=== PATIENT | female | born 1995 | race Caucasian/White ===

== ENCOUNTER 2016-11-23 13:54 | Emergency (ER) | payer OTHER ==
--- OUTSIDE RECORDS SUMMARY | 2016-11-23 14:40 | XMS REPORT | Continuity of Care Document ---
:1995 Author Organization [facility] ([facility]) Address [address] [place] [address] Phone [phone] Care Team Providers Name Role Phone Unavailable Primary Care Provider Unavailable Source Comments This disclosure is being made pursuant to the Care Everywhere program, applicable federal and state laws, and may not contain all informaitonavailable regarding this patient.[facility] ([facility]) Active Allergies and Adverse Reactions No Known Allergies Current Medications Prescription Sig. Disp. Refills Start Date End Date Status insulin lispro Inject subcutaneously 3 Active (HumaLOG) 100 unit/mL times daily before injection vial meals insulin glargine Inject subcutaneously Active (LanTUS) 100 unit/mL at bedtime injection vial SUPPLY FREESTYLE LITE daily Used to test Active test strips blood glucose levels 20 times per day Active Problems Problem Noted Date Diabetes mellitus type 1, uncontrolled 06/26/2015 Resolved Problems Problem Noted Date Resolved Date PPROM at 33 6/7 weeks, BMTZ 1/4 and 1/5 08/24/2011 08/25/2011 Mild preeclampsia, 24 hr urine 459 mg 08/24/2011 06/26/2015 Gestational diabetes A2 on glyburide 2.5 q pm 08/24/2011 06/26/2015 macrosomia, measuring 3424 gm at 33 3/7 weeks (>97%) 08/24/20112014 , , dating by LMP c/w 21 wk US 08/24/2011 06/26/2015 Social History Tobacco Use Types Packs/Day Years Used Date Never Smoker Smokeless Tobacco: Never Used Tobacco Cessation:Counseling Given: Yes Comments: Alcohol Use Drinks/Week oz/Week Comments No Last Filed Vital Signs Vital Sign Reading Time Taken Blood Pressure 109/75 06/26/2015 9:30 AM BILL HIKER Pulse 94 06/26/2015 9:30 AM BILL HIKER Temperature 36.5 C (97.7 F) 08/27/2011 7:45 AM BILL HIKER Respiratory Rate 18 08/25/2011 6:51 AM BILL HIKER Height 1.651 m (5' 5") 06/26/2015 9:30 AM BILL HIKER Weight 82.6 kg (182 lb 1.6 oz) 06/26/2015 9:30 AM BILL HIKER Body Mass Index 30.3 06/26/2015 9:30 AM BILL HIKER Oxygen Saturation - - Plan of Care Health Maintenance Due Date Last Done Comments Hepatitis B Vaccine (1 of 3 - Primary Series) 1994 HPV Vaccine (1 of 3 - Female/Unknown 3 Dose Series) 2005 Tdap Vaccine 2005 Meningococcal Vaccine (1 of 1) 2010 Cervical Cancer Screening 2012 DIABETIC: Cholesterol 2012 Diabetic: Hdl 2012 DIABETIC: Hemoglobin A1C 2012 Diabetic: Ldl 2012 DIABETIC: Microalbumin 2012 DIABETIC: Triglycerides 2012 MMR Vaccine 2012 Td Vaccine 2012 Varicella Vaccine (1 of 2 - Adult - No Evidence of 2012 Immunity) Pneumococcal Vaccine (1 of 1 - PPSV23) 2013 DIABETIC: Foot Exam 06/26/2015 DIABETIC: Retinal Eye Exam 06/26/2015 Influenza Vaccine: Seasonal (#1) 03/03/2016 Results from Last 3 Months Not on file
[2016-11-23] MEDS ORDERED: NORMAL SALINE 1,000 ML IV ONE ×2 (14:44→16:24)
[2016-11-23] MEDS ORDERED: ONDANSETRON HCL/PF 2 MG/ML VIAL IV ONE (14:45)
--- NOTE | 2016-11-23 14:57 | ERNOTE ---
Integumentary HPI - Narrative Date of Service: 11/23/16 - General Presenting Symptoms: abscess Time Seen by Provider: 11/23/16 14:30 Source: patient Exam Limitations: no limitations - Immun/Allergies/Home Medications Immunizations: IMMUNIZATION HX Immunizations Up to Date No History of Influenza Vaccine No Hx Pneumococcal Vaccination No Allergies/Adverse Reactions: Allergies Allergy/AdvReac Type Severity Reaction Status Date / Time No Known Allergies Allergy Verified 03/20/16 15:08 Home Medications: HOME MEDICATIONS Insulin Lispro [Humalog] 10 units SC TIDWM 08/07/15 [Last Taken 08/07/15] Atorvastatin Calcium [Lipitor] 40 mg PO HS 11/23/16 [Last Taken Unknown] Doxycycline Hyclate [Vibratab] 100 mg PO BID #28 tablet 11/23/16 [Last Taken Unknown] HYDROcodone/ACETAMINOPHEN [[place] 5-325 Tablet] 1 each PO Q6H PRN #10 tablet [Last Taken Unknown] HYDROcodone/ACETAMINOPHEN [[place] 5-325 Tablet] 1 tab PO Q6H PRN #10 tab [Last Taken Unknown] Insulin Glargine,Hum.rec.anlog [Lantus] 40 units SC BID 11/23/16 [Last Taken Unknown] - Pain Pain Score: 9 - History of Present Illness Narrative: Patient is a 21 year old insulin dependant diabetic who is currently being treated with Bactrim for MRSA. Patient states she has history of MRSA and was seen at [facility] approximately 2 weeks ago for MRSA abscesses on her forehead and right labia. States was told abscesses were not ready to be lanced and was started on Clindamycin. Patient states she returned to [facility] approximately 4- 5 days later and labia sore was lanced and left open to drain. States 4-5 days ago she was called with her culture results and Clindamycin was discontinued and Bactrim DS was started. Patient states she was doing fine until 3 days ago when she felt a sore bump on back of her head. States bump is getting larger, more painful and now has fever, chills, body aches, fatigue, headache and nausea. Patient states her blood sugars have been consistently >400 and she is feeling worse. Has history of DKA. Has been IDDM x 2 years and uses Humalog sliding scale and Lantus 40 units SQ BID to keep sugars ~130. States she is compliant with insulin and keeps tight control over her blood sugars. Date (Duration): 11/20/16 Location: Reports: scalp Quality: Reports: painful Severity: moderate Exposure: Reports: other - history of MRSA, currently under treatment with Bactrim for MRSA Modifying Factors - (Improves): Reports: nothing Modifying Factors - (Worsens): Reports: nothing Associated Symptoms: Reports: swelling/mass/lumps, fever, flushing, headache, malaise. Denies: blisters, rash, hives, petechiae, edema, nasal congestion, sore throat, pallor, paresthesia, numbness, jaundice Prior Treatment: Reports: recently seen, treated by physician, currently on antibiotics - Clindamycin initially and changed to Bactrim DS BID Review of Systems - Review of Systems Constitutional: Present: recent illness, fever, chills, diaphoresis, fatigue, malaise. Absent: weight loss, fussy, decreased activity level EYE: Absent: eye pain, eye discharge, blurred vision, double vision, vision changes ENT: Absent: ear pain, ear discharge, pulling on ears, nose pain, nose congestion, nasal drainage, sore throat Respiratory: Absent: shortness of breath, cough, orthopnea, wheezing, stridor Cardiology: Absent: chest pain, palpitations, syncope Gastrointestinal/Abdominal: Present: nausea, eating less, drinking less. Absent : vomiting, diarrhea, constipation, abdominal pain Genitourinary: Present: no symptoms reported Musculoskeletal: Absent: back pain, muscle pain, muscle stiffness, neck pain, joint pain, joint swelling Skin: Present: lesions - back of scalp. Absent: rash, dryness Neurological: Present: headache. Absent: dizziness/light-headedness, seizure, weakness, numbness, tingling Endocrine: Present: flushing. Absent: excessive sweating, increased hunger, unexplained weight gain Hematologic/Lymphatic: Present: no symptoms reported Psych: Present: no symptoms reported - Patient's Past Medical History Patient History - Medical: Bipolar, Diabetes Type 1 Patient History - Cardiac/Respiratory: No pertinent hx Patient History - Cancer: No Hx of Cancer Patient History - Surgical Procedures: T & A, Other Patient History - Other: None - Family History Mother Family History - Medical: Bipolar Father Family History - Medical: Bipolar - Social History Living Situations: home Abuse History: No History of abuse Psych History: Hx of Bipolar Disorder Smoking Status: Never smoker Alcohol Use: none Drug Use: none - Immunizations Immunizations Up to Date: No Hx Pneumococcal Vaccination: No History of Influenza Vaccine: No Physical Exam - Physical Exam General Appearance: Present: wd/wn, alert, no apparent distress Eye Exam: Normal inspection: bilateral, PERRL: bilateral Ears, Nose, Throat: Present: normal ENT inspection, dry mucous membranes. Absent: pharyngeal erythema, pharyngeal swelling, tonsillar exudate, tonsillar swelling Neck: Present: normal inspection, nontender, supple, full range of motion. Absent: lymphadenopathy (R), lymphadenopathy (L) Respiratory: Present: no respiratory distress, normal breath sounds, no accessory muscle use, chest nontender, lungs clear Cardiovascular/Chest: Present: regular rate, rhythm, no murmur, normal peripheral pulses Peripheral Pulses: N=norm/S=strong/W=weak/B=bound/A=absent: Radial (R): Normal, Radial (L): Normal Gastrointestinal/Abdominal: Present: normal bowel sounds, nontender, nondistended, soft, no organomegaly Rectal Exam: Present: deferred Back Exam: Present: normal inspection, normal range of motion, no CVA tenderness , no vertebral tenderness Extremity Exam: Present: normal inspection, non-tender, normal range of motion, no edema Neurological Exam: Present: alert, oriented, normal mood/affect, no motor/ sensory deficits Skin Exam: Present: normal color, warm/dry - flushed cheeks, other - raised bump with yellow head back of scalp Lymphatic Exam: Present: no adenopathy Pelvic Exam: Present: deferred ED Progress - Results and Orders Patient's Lab Results:: I have reviewed the patient's lab results. - Vital Signs Patient's Vital Signs:: I have reviewed the patient's vital signs. Vital Signs: Vital Signs 11/23/16 14:01 Temperature 36.3 C L Pulse Rate 135 H Respiratory 13 Rate Blood Pressure 128/84 O2 Sat by Pulse 100 Oximetry - Progress/Reassessment Chief Complaint: Rash Progress:: Improved Progress Note-Subjective: 11/23/16 16:25 Patient continues to complain of nausea and pain without relief from Toradol and Zofran. Discussed lab findings with patient. Questions answered. 11/23/16 17:11 Much improved, states headache pain is gone. Eating [employer] and chips without NV. Departure Clinical Impression: MRSA (methicillin resistant Staphylococcus aureus) infection, Abscess - Departure Disposition: Home Follow Up Needed Condition: Good Instructions: Community-Associated MRSA Additional Instructions: Continue Bactrim as previously prescribed. Take Doxycycline twice a day for 2 weeks, complete entire course even when abscess is healed and gone. Monitor blood sugars frequently. Call provider's office on Thursday and follow up this week. Return to ED if symptoms worsen. No driving or drinking alcohol while on [place]. Referrals: Shahida Schmid DO [Primary Care Provider] - Prescriptions: Doxycycline Hyclate [Vibratab] 100 mg PO BID #28 tablet HYDROcodone/ACETAMINOPHEN [[place] 5-325 Tablet] 1 each PO Q6H PRN #10 tablet PRN Reason: Pain HYDROcodone/ACETAMINOPHEN [[place] 5-325 Tablet] 1 tab PO Q6H PRN #10 tab PRN Reason: Pain
[2016-11-23] MEDS ORDERED: ONDANSETRON HCL/PF 2 MG/ML VIAL ONE (14:59)
[2016-11-23 15:07] LABS: Hematocrit 40.9 % (37.0-47.0); Hemoglobin 14.5 gm/dL (12.5-16.0); Mean Corpuscular Hemoglobin 29.8 pg (27-31); Mean Corpuscular Hgb Conc 35.5 g/dl (32-36); Mean Platelet Volume 11.1 fl (6.0-9.5); Neutrophil # 5.9 K/mm3 (1.3-6.0); Neutrophil % 65.6 % (42-75.0); Platelet Count 238 K/mm3 (150-450); Red Blood Count 4.87 M/mm3 (4.2-5.4); Red Cell Distribution Width 11.6 % (11.5-14.0); White Blood Count 9.1 K/mm3 (4.0-10.5)
[2016-11-23 15:08] LABS: Urine Appearance Clear; Urine Color Yellow
[2016-11-23 15:09] LABS: Urine Bacteria None Seen; Urine Bilirubin Negative (NEGATIVE); Urine Blood Negative /ul (NEGATIVE); Urine Ketone Negative (NEGATIVE); Urine Nitrite Negative (NEGATIVE); Urine Protein Negative (NEGATIVE); Urine RBC None Seen /hpf (0-5); Urine Specific Gravity 1.015 SP.GR. (1.005-1.010); Urine Urobilinogen Normal (NORMAL); Urine WBC 0-5 /hpf (0-5)
[2016-11-23] MEDS ORDERED: KETOROLAC TROMETHAMINE 30 MG/ML VIAL ONE (15:13)
[2016-11-23 15:14] LABS: BUN/Creatinine Ratio 13.7 (9.0-21.6); Calcium * 8.7 mg/dL (7.9-10.9); Estimated Creat Clear 108.8; Potassium 3.9 mmol/L (3.4-4.6)
[2016-11-23] MEDS ORDERED: KETOROLAC TROMETHAMINE 30 MG/ML VIAL IV ONE (15:14)
[2016-11-23 15:26] LABS: Anion Gap 13.6 mmol/L (6.8-13.8); Carbon Dioxide 29.3 mmol/L (24-32.6)
[2016-11-23] MEDS ORDERED: MORPHINE SULFATE 2 MG/ML DISP.SYRIN IV ONE (16:24)
[2016-11-23] MEDS ORDERED: PROCHLORPERAZINE EDISYLATE 5 MG/ML VIAL IV ONE (16:25)
[2016-11-23] MEDS ORDERED: MORPHINE SULFATE 2 MG/ML DISP.SYRIN ONE (16:26)
[2016-11-23] MEDS ORDERED: PROCHLORPERAZINE EDISYLATE 5 MG/ML VIAL ONE (16:27)
[2016-11-23] MEDS ORDERED: DOXYCYCLINE HYCLATE 100 MG TABLET PO ONE (17:17)
[2016-11-23] MEDS ORDERED: DOXYCYCLINE HYCLATE 100 MG TABLET ONE (17:20)
[2016-11-23 17:25] VITALS: BP 113/76
== END 2016-11-23 17:34 | disposition home or self-care (01) ==
LOC: ER 13:54
DX: A49.02 Methicillin resistant Staphylococcus aureus infection, unspecified site (principal); L02.811 Cutaneous abscess of head [any part, except face]; E10.69 Type 1 diabetes mellitus with other specified complication

== ENCOUNTER 2017-03-09 13:22 | Observation (INO) | payer OTHER ==
[2017-03-09 14:19] LABS: Hematocrit 37.4 % (37.0-47.0); Hemoglobin 12.7 gm/dL (12.5-16.0); Mean Cell Volume 88.4 fl (78-100); Neutrophil # 1.8 K/mm3 (1.3-6.0); Neutrophil % 45.6 % (42-75.0); Platelet Count 164 K/mm3 (150-450); Red Blood Count 4.23 M/mm3 (4.2-5.4); Red Cell Distribution Width 14.1 % (11.5-14.0)
[2017-03-09 14:22] LABS: Urine Bilirubin Negative (NEGATIVE); Urine Blood Negative /ul (NEGATIVE); Urine Ketone Negative (NEGATIVE); Urine Nitrite Negative (NEGATIVE); Urine Protein Negative (NEGATIVE); Urine Urobilinogen Normal (NORMAL); Urine pH 6.5 pH (5.0-7.0)
[2017-03-09 14:32] LABS: Albumin * 2.8 gm/dl (3.4-5.0); Anion Gap 17.6 mmol/L (6.8-13.8); BUN/Creatinine Ratio 15.5 (9.0-21.6); Bilirubin, Total 0.4 mg/dL (0.0-1.1); Ca. Corrected For Albumin 9.2 mg/dL (8.4-10.2); Calcium * 8.6 mg/dL (7.9-10.9); Carbon Dioxide 25.6 mmol/L (24-32.6); Potassium 4.2 mmol/L (3.4-4.6); Total Protein 6.1 gm/dL (6.2-8.2)
[2017-03-09 14:36] LABS: Hemoglobin A1C 12.1 % (4.00-6.0)
[2017-03-09] MEDS ORDERED: NORMAL SALINE 1,000 ML IV ONE (14:41)
[2017-03-09 14:46] LABS: Urine Amorphous Sediment Moderate - 2+ (NONE-FEW); Urine Appearance Clear; Urine Bacteria None Seen; Urine Color Yellow; Urine RBC None Seen /hpf (0-5); Urine WBC None Seen /hpf (0-5)
--- NOTE | 2017-03-09 14:47 | ERNOTE ---
Medical Problem HPI - General Chief Complaint: General Assessment Time Seen by Provider: 03/09/17 13:53 Source: patient Exam Limitations: no limitations - Immun/Allergies/Home Medications Immunizations: IMMUNIZATION HX Immunizations Up to Date No History of Influenza Vaccine No Hx Pneumococcal Vaccination No Allergies/Adverse Reactions: Allergies No Known Allergies Allergy (Verified 03/20/16 15:08) Home Medications: HOME MEDICATIONS Insulin Lispro [Humalog] 10 units SC TIDWM 08/07/15 [Last Taken 08/07/15] Atorvastatin Calcium [Lipitor] 40 mg PO HS 11/23/16 [Last Taken Unknown] Insulin Glargine,Hum.rec.anlog [Lantus] 40 units SC BID 11/23/16 [Last Taken Unknown] Omeprazole 20 mg PO DAILY 03/09/17 [Last Taken Unknown] - History of Present History Narrative: This is a 21-year-old female with a history of insulin requiring diabetes who presents to the ER for swelling in both hands and feet. Patient states that she has not been indulging in sodium rich foods and she states "I think I may be in DKA" she also complains about some diffuse abdominal discomfort but no pain per se no nausea or vomiting. Review of Systems - Review of Systems Constitutional: Present: no symptoms reported EYE: Present: no symptoms reported ENT: Present: no symptoms reported Respiratory: Present: no symptoms reported Cardiology: Present: no symptoms reported Gastrointestinal/Abdominal: Present: See HPI. Absent: nausea, vomiting Genitourinary: Present: no symptoms reported Musculoskeletal: Present: other - patient complains of swelling and both hands and feet in the past 24 hours. Neurological: Present: emotional problems - Patient's Past Medical History Patient History - Medical: Bipolar, Diabetes Type 1, GERD Patient History - Cardiac/Respiratory: Hyperlipidemia Patient History - Cancer: No Hx of Cancer Patient History - Surgical Procedures: T & A, Other Patient History - Other: None - Family History Mother Family History - Medical: Bipolar Father Family History - Medical: Bipolar - Social History Living Situations: home Abuse History: No History of abuse Psych History: Hx of Bipolar Disorder Smoking Status: Never smoker Have you smoked in the past 12 months: No Alcohol Use: none Drug Use: none - Immunizations Immunizations Up to Date: No Hx Pneumococcal Vaccination: No History of Influenza Vaccine: No Physical Exam - Physical Exam General Appearance: Present: wd/wn, alert, no apparent distress Head Exam: Present: normal inspection, no evidence of injury Ears, Nose, Throat: Present: normal ENT inspection, normal pharynx Neck: Present: normal inspection, nontender Respiratory: Present: no respiratory distress, normal breath sounds, no accessory muscle use, chest nontender, lungs clear Cardiovascular/Chest: Present: regular rate, rhythm, no murmur, normal peripheral pulses Gastrointestinal/Abdominal: Present: normal bowel sounds, nondistended Extremity Exam: Present: normal range of motion, other - patient does have 1+ pitting edema in both ankles and lower tibial regions I do not appreciate any swelling in the hands. There is no other signs of trauma to extremities Neurological Exam: Present: alert, oriented, normal mood/affect, no motor/ sensory deficits ED Progress - Results and Orders Patient's Lab Results:: I have reviewed the patient's lab results. - Vital Signs Patient's Vital Signs:: I have reviewed the patient's vital signs. Vital Signs: Vital Signs 03/09/17 13:40 Temperature 36.8 C Pulse Rate 92 Respiratory 17 Rate Blood Pressure 120/79 O2 Sat by Pulse 98 Oximetry - X-Ray X-Ray #1 X-Ray: chest - Progress/Reassessment Chief Complaint: General Assessment Plan - Plan Plan: This is a 21-year-old female who initially presented to us with swelling in hands and feet. While the swelling in the legs and ankles is minimal during the workup it was noted the patient has lactic acidosis with hyperglycemia and very poorly controlled diabetes with a hemoglobin A1c of 12.1 serum ketones are negative urine ketones are negative. As such I believe this patient has hyperglycemia with lactic acidosis and patient needs to be admitted for further observation and monitoring and IV fluid therapy. He also needs insulin and 4 units IV was instituted at this time Departure - Departure Clinical Impression: Hyperglycemia, Lactic acidosis Clinical Impression: (Ruled Out): Sepsis Disposition: [facility] Condition: Fair
[2017-03-09] MEDS ORDERED: INSULIN REGULAR, HUMAN 100 UNITS/ML VIAL IV ONE (15:11)
[2017-03-09] MEDS ORDERED: INSULIN REGULAR, HUMAN 100 UNITS/ML VIAL ONE (15:15)
[2017-03-09] MEDS ORDERED: INSULIN REGULAR, HUMAN 100 UNITS/ML VIAL SC SCH (15:30)
--- NOTE | 2017-03-09 17:15 | HP ---
Chief Complaint - Chief Complaint Date of Service: 03/09/17 Time of Service: 17:09 Chief Complaint: Swelling of hands and feet which is typical of when she goes into DKA. She was hyperglycemic with lactic acidosis in ER so needed fluids, insulin and observation for this. History of Present Illness: 21 WF with PMH type 1 DM, history of recurrent MRSA infections, was having hand and LE swelling, which often happens as she starts going into DKA, so she went to ER. She had no signs of current infections/skin abscesses, fevers, chills, UTI sx, but was having some SOB. Sugars for her she said really have been pretty good lately. In seeing her the only issue she really has is her stomach right now and the edema, otherwise she says she feels fine. In ER she was hyperglycemic with lactic acidosis in ER so needed fluids, insulin and observation for this. - Patient's Past Medical History Patient History - Medical: Bipolar, Diabetes Type 1, GERD Patient History - Cardiac/Respiratory: Hyperlipidemia Patient History - Cancer: No Hx of Cancer Patient History - Surgical Procedures: T & A, Other Patient History - Other: None LMP (females 10-50): this week - Family History Mother Family History - Medical: No pertinent hx, Bipolar Father Family History - Medical: No pertinent hx, Bipolar - Social History Living Situations: alone Abuse History: No History of abuse Psych History: Hx of Bipolar Disorder Smoking Status: Never smoker Have you smoked in the past 12 months: No Alcohol Use: none Drug Use: none - Immunizations Immunizations Up to Date: No Hx Pneumococcal Vaccination: No History of Influenza Vaccine: No Review Of Systems (GEN) - Review of Systems Generalized/Overall Review: Present: No Symptoms Reported EENTM: Present: No Symptoms Reported Respiratory: Present: Shortness of Breath Cardiac: Present: Edema. Absent: Chest Pain, Palpitations Abdominal: Present: Nausea, Abdominal Pain - TANJA and heartburn sx. Genitourinary: Present: No Symptoms Reported Musculoskeletal: Present: No Symptoms Reported Neurological: Present: Tingling Skin: Present: No Symptoms Reported Endocrine: Present: No Symptoms Reported Immunizations: IMMUNIZATION HX Immunizations Up to Date No History of Influenza Vaccine No Hx Pneumococcal Vaccination No Allergies/Adverse Reactions: Allergies Allergy/AdvReac Type Severity Reaction Status Date / Time No Known Allergies Allergy Verified 03/20/16 15:08 Home Medications: HOME MEDICATIONS Insulin Lispro [Humalog] 10 units SC TIDWM 08/07/15 [Last Taken 08/07/15] Atorvastatin Calcium [Lipitor] 40 mg PO HS 11/23/16 [Last Taken Unknown] Insulin Glargine,Hum.rec.anlog [Lantus] 40 units SC BID 11/23/16 [Last Taken Unknown] Omeprazole 20 mg PO DAILY 03/09/17 [Last Taken Unknown] Exam - Exam Vital Signs: Vital Signs - Last Taken Temp 36.7 C 03/09/17 15:55 Pulse 82 03/09/17 15:55 Resp 16 03/09/17 15:55 BP 120/75 03/09/17 15:55 Pulse Ox 98 03/09/17 15:55 Constitutional: Present: Alert, Oriented x3, Cooperative, Well developed, No distress ENT Exam: Present: hearing grossly normal Eye Exam: bilateral eye: normal inspection, PERRL, EOMI Neck: Present: supple Respiratory: Present: chest non-tender, lungs clear, normal breath sounds, no respiratory distress Cardiovascular/Chest: Present: regular rate, rhythm, no murmur Peripheral Pulses: dorsalis-pedis (R): 2+ - 1+ LE edema, dorsalis-pedis (L): 2+ - 1+ LE edema Abdomen: Present: Normal bowel sounds, soft, nondistended, no rebound tenderness , tender - TANJA region /Rectal: Present: Exam deferred Extremity: Present: no calf tenderness, lower extremity edema - 1+ bernarda Skin Exam: Present: normal color, warm/dry Neurologic: Present: financial services consultant II-XII nml as tested, normal mood/affect, oriented x 3 Appearance: Present: appropriate appearance, appropriate insight, neat Eye contact: Present: cooperative, good eye contact, normal speech Thoughts: Present: normal thought pattern, no apparent hallucination Diagnostic Studies: Laboratory Results WBC 4.0 K/mm3 (4.0-10.5) 03/09/17 14:17 RBC 4.23 M/mm3 (4.2-5.4) 03/09/17 14:17 Hgb 12.7 gm/dL (12.5-16.0) 03/09/17 14:17 Hct 37.4 % (37.0-47.0) 03/09/17 14:17 MCV 88.4 fl (78-100) 03/09/17 14:17 MCH 30.0 pg (27-31) 03/09/17 14:17 MCHC 34.0 g/dl (32-36) 03/09/17 14:17 RDW 14.1 % (11.5-14.0) H 03/09/17 14:17 Plt Count 164 K/mm3 (150-450) 03/09/17 14:17 MPV 11.0 fl (6.0-9.5) H 03/09/17 14:17 Immature Gran % (Auto) 1.00 % (0.001-0.429) H 03/09/17 14:17 Immature Gran # (Auto) 0.04 K/mm3 (0.000-0.0310) H 03/09/17 14:17 Neutrophils % 45.6 % (42-75.0) 03/09/17 14:17 Lymphocytes % 32.6 % (20-51) 03/09/17 14:17 Monocytes % 15.4 % (0.0-9) H 03/09/17 14:17 Eosinophils % 4.7 % (0.0-3.0) H 03/09/17 14:17 Basophils % 0.7 % (0.0-1.0) 03/09/17 14:17 Nucleated RBC % 0.0 k/mm3 (0-1) 03/09/17 14:17 Neutrophils # 1.8 K/mm3 (1.3-6.0) 03/09/17 14:17 Lymphocytes # 1.3 k/mm3 (1.5-3.5) L 03/09/17 14:17 Monocytes # 0.6 k/mm3 (0.0-1.0) 03/09/17 14:17 Eosinophils # 0.2 k/mm3 (0.0-0.7) 03/09/17 14:17 Absolute Basophils 0.0 k/mm3 (0.0-0.1) 03/09/17 14:17 pCO2 34.7 mmHg (32.0-45.0) 03/09/17 14:37 pO2 107.3 mmHg (83.0-108.0) 03/09/17 14:37 HCO3 23.0 mmol/L (21.0-28.0) 03/09/17 14:37 Total CO2 24.1 mmol/L (19.0-24.0) H 03/09/17 14:37 Base Excess -0.6 mmol/L (-2.0-3.0) 03/09/17 14:37 ABG pH 7.44 (7.35-7.45) 03/09/17 14:37 ABG O2 Sat (Measured) 98.1 % (94.0-98.0) H 03/09/17 14:37 Sodium 141 mmol/L (132-142) 03/09/17 14:17 Plasma Sodium 145 mmol/L (130-142) H 03/09/17 14:17 Potassium 4.2 mmol/L (3.4-4.6) 03/09/17 14:17 Chloride 102 mmol/L (97-106) 03/09/17 14:17 Carbon Dioxide 25.6 mmol/L (24-32.6) 03/09/17 14:17 Anion Gap 17.6 mmol/L (6.8-13.8) H 03/09/17 14:17 BUN 11 mg/dL (3-23) 03/09/17 14:17 Creatinine 0.71 mg/dL (0.4-1.4) 03/09/17 14:17 Est GFR (Non-Af Amer) 109 mL/min (60-130) 03/09/17 14:17 BUN/Creatinine Ratio 15.5 (9.0-21.6) 03/09/17 14:17 Random Glucose 347 mg/dL (70-110) H 03/09/17 14:17 Mean Blood Glucose 317 mg/dL 03/09/17 14:17 Hemoglobin A1c 12.1 % (4.00-6.0) H 03/09/17 14:17 Lactic Acid, Venous 3.3 mmol/L (0.4-1.9) H* 03/09/17 14:17 Calcium 8.6 mg/dL (7.9-10.9) 03/09/17 14:17 Calcium Adj for Albumin 9.2 mg/dL (8.4-10.2) 03/09/17 14:17 Total Bilirubin 0.4 mg/dL (0.0-1.1) 03/09/17 14:17 AST 251 U/L (0-48) H 03/09/17 14:17 ALT 175 U/L (19-67) H 03/09/17 14:17 Alkaline Phosphatase 111 U/L (50-170) 03/09/17 14:17 Total Protein 6.1 gm/dL (6.2-8.2) L 03/09/17 14:17 Albumin 2.8 gm/dl (3.4-5.0) L 03/09/17 14:17 Serum HCG, Qual Negative (NEGATIVE) 03/09/17 14:12 Urine Color Yellow 03/09/17 14:17 Urine Appearance Clear 03/09/17 14:17 Urine pH 6.5 pH (5.0-7.0) 03/09/17 14:17 Ur Specific [place] 1.010 SP.GR. (1.005-1.010) 03/09/17 14:17 Urine Protein Negative mg/dL (NEGATIVE) 03/09/17 14:17 Urine Glucose (UA) >=1000 mg/dL (NEGATIVE) H 03/09/17 14:17 Urine Ketones Negative mg/dL (NEGATIVE) 03/09/17 14:17 Urine Blood Negative /ul (NEGATIVE) 03/09/17 14:17 Urine Nitrate Negative (NEGATIVE) 03/09/17 14:17 Urine Bilirubin Negative mg/dl (NEGATIVE) 03/09/17 14:17 Urine Urobilinogen Normal EU/dl (NORMAL) 03/09/17 14:17 Ur Leukocyte Esterase Negative /ul (NEGATIVE) 03/09/17 14:17 Urine RBC None seen /hpf (0-5) 03/09/17 14:17 Urine WBC None seen /hpf (0-5) 03/09/17 14:17 Ur Epithelial Cells 0-5 /hpf (0-5) 03/09/17 14:17 Amorphous Sediment Moderate - 2+ (NONE-FEW) H 03/09/17 14:17 Urine Bacteria None seen (NONE) 03/09/17 14:17 Urine Culture Comments No culture indicated 03/09/17 14:17 Serum Ketones Negative (NEGATIVE) 03/09/17 14:12 Assessment/Plan - Assessment/Plan (1) Epigastric abdominal pain Assessment: will do zantac and consider continuing this outpt. Problem: Acute (2) History of MRSA infection Assessment: will check, if + will treat nares outpt. Problem: Acute (3) Hyperglycemia Assessment: will do serial accuchecks q2hrs x 2 with moderate dose SSI. and then change to ACHS dosing. do consistant carb diet and continue her lantus. Problem: Acute (4) Lactic acidosis Assessment: will do high rate IVF and recheck lactic acid in a few hours. if edema worsens will have nursing given prn lasix 20mg IV. Problem: Acute (5) Elevated liver enzymes Assessment: pt. crestor was held due to this. could be [place] causing this as both her liver and spleen area are tender on exam. will follow-up LFT's outpt. but this could easily explain her edema and sx. Problem: Acute (6) Discharge planning issues Assessment: anticipate d/c in am. Problem: Acute
[2017-03-09] MEDS ORDERED: FUROSEMIDE 10 MG/ML VIAL IV PRN (17:38)
[2017-03-09] MEDS: INSULIN REGULAR, HUMAN 100 UNITS/ML VIAL SC SCH ×2 (17:40→20:51)
[2017-03-09] MEDS: NORMAL SALINE 1,000 ML IV PRN ×2 (17:47→22:52)
[2017-03-09] MEDS ORDERED: INSULIN GLARGINE,HUM.REC.ANLOG 100 UNITS/ML VIAL SC SCH (21:00)
[2017-03-09] MEDS ORDERED: ROSUVASTATIN CALCIUM 20 MG TABLET PO SCH (21:00)
[2017-03-09] MEDS ORDERED: RANITIDINE HCL 15 MG/ML BTL PO SCH (21:00)
--- NOTE | 2017-03-10 06:10 | DS ---
(1) Epigastric abdominal pain Problem: Acute (2) History of MRSA infection Problem: Acute (3) Hyperglycemia Problem: Acute (4) Lactic acidosis Problem: Acute (5) Elevated liver enzymes Problem: Acute (6) Discharge planning issues Problem: Acute Description of Stay: Pt. admitted for lactic acidosis, hyperglycemia, edema and was noted to have Upper abdominal pain and elevated LFTs. Fluids were given, crestor was held and we'll do monospot and hepatitis panel prior to her discharge. She can f/u with her PCP to look at restarting crestor if LFT'S normalize. She had no complaints on the morning of discharge. Procedures Performed: none Discharge Disposition: Home self care Disposition: Home self-care Condition: Fair Discharge Activity: Activity as tolerated Discharge Diet: Consistent carbs Referrals: Shahida Schmid DO [Primary Care Provider] - One Week Complete Home Medications List: Complete Home Medication List: Insulin Lispro [Humalog] 10 units SC TIDWM 08/07/15 Insulin Glargine,Hum.rec.anlog [Lantus] 40 units SC BID 11/23/16 Omeprazole 20 mg PO DAILY 03/09/17
[2017-03-10 06:32] LABS: Albumin * 2.3 gm/dl (3.4-5.0); Anion Gap 12.1 mmol/L (6.8-13.8); BUN/Creatinine Ratio 14.6 (9.0-21.6); Bilirubin, Total 0.4 mg/dL (0.0-1.1); Ca. Corrected For Albumin 8.8 mg/dL (8.4-10.2); Calcium * 7.8 mg/dL (7.9-10.9); Carbon Dioxide 27.5 mmol/L (24-32.6); Potassium 3.6 mmol/L (3.4-4.6); Total Protein 5.3 gm/dL (6.2-8.2)
[2017-03-10] MEDS ORDERED: PANTOPRAZOLE SODIUM 20 MG TABLET.DR PO SCH (07:00)
[2017-03-10] MEDS: INSULIN REGULAR, HUMAN 100 UNITS/ML VIAL SC SCH (07:09)
[2017-03-10 07:56] VITALS: BP 107/71
[2017-03-11 09:27] LABS: Hepatitis C Antibody NON-REACTIVE (NON-REACTIVE); Hepatitis Panel Confirmation DNR
[2017-03-11 09:36] LABS: Hepatitis A IgM Antibody NON-REACTIVE (NON-REACTIVE); Hepatitis B Surface Antigen NON-REACTIVE (NON-REACTIVE)
== END 2017-03-10 08:40 | disposition home or self-care (01) ==
LOC: ER 13:22 → MS 15:09 → UNDOADMOB 15:09 → MS 15:10
PROVIDERS: ADMIT Family Medicine; ATTEND Internal Medicine
PROC: 4A033R1 Measurement of Arterial Saturation, Peripheral, Percutaneous Approach (ICD-10-PCS; principal; 2017-03-09)
DX: E10.10 Type 1 diabetes mellitus with ketoacidosis without coma (principal); E10.65 Type 1 diabetes mellitus with hyperglycemia; R10.13 Epigastric pain; Z79.4 Long term (current) use of insulin; R74.8 Abnormal levels of other serum enzymes; Z86.14 Personal history of Methicillin resistant Staphylococcus aureus infection; E78.5 Hyperlipidemia, unspecified; K21.9 Gastro-esophageal reflux disease without esophagitis
CPT/HCPCS: 36415; 36600; 71020; 80053; 80074; 81001; 82009; 82010; 82803; 83036; 83605; 84703; 85025; 86308; 87081; 96372; 99283; G0378

== ENCOUNTER 2018-04-23 12:38 | Inpatient (IN) ==
[2018-04-23] MEDS ORDERED: DEXTROSE 5%-LACTATED RINGERS 1,000 ML IV PRN ×2 (13:29→14:15)
[2018-04-23] MEDS ORDERED: PENICILLIN G POTASSIUM 5 MILLIONUNT in DEXTROSE 5 % IN WATER 100 ML IV ONE ×2 (13:29)
[2018-04-23] MEDS: RINGER'S SOLUTION,LACTATED 1,000 ML IV PRN ×2 (13:30→15:20)
[2018-04-23] MEDS ORDERED: INSULIN LISPRO 100 UNITS/ML VIAL SC PRN ×2 (13:43→15:25)
[2018-04-23] MEDS ORDERED: RINGER'S SOLUTION,LACTATED 1,000 ML IV PRN (15:19)
--- NOTE | 2018-04-23 15:25 | HP ---
Chief Complaint - Chief Complaint Date of Service: 04/23/18 Time of Service: 15:22 Chief Complaint: N/V, Contractions History of Present Illness: 22 yo at 36 2/7 wks presents to L&D complaining of increased frequency and intensity of contractions accompanied with nausea and vomiting. Patient denies fever, chills, or recent illness. This complicated by anemia, IDDM, hyperemesis gravidarum, h/o MRSA ( 2016), h/o preeclampsia, h/o PTD (34wks) - on progesterone vaginal suppositories , PTL this (received steroids 04/08-02/17), recurrent SAB, and anxiety/ depression (took herself off meds in November). Rh positive Rubella non-immune GBS positive Medical History (Last Reviewed 04/23/18 @ 15:50 by Dion Zamora DO) Anxiety and depression Onset Date: ~09/2015 Chlamydia Onset Date: ~2014 GERD (gastroesophageal reflux disease) Onset Date: ~05/25/16 Gestational HTN Onset Date: ~2011 Gestational diabetes Hyperlipemia Onset Date: ~09/17/16 Left foot drop No known allergies Overflow incontinence of urine Onset Date: ~09/17/16 Uncontrolled diabetes mellitus Onset Date: ~06/02/17 MRSA (methicillin resistant Staphylococcus aureus) colonization Onset Date: ~ 06/02/17 Obesity Lipoma Onset Date: Unknown Peroneal nerve injury Onset Date: ~09/17/16 Pre-eclampsia Onset Date: ~2011 Premature delivery Onset Date: ~2011 Surgical History: Surgical History (Last Reviewed 04/23/18 @ 15:50 by Dion Zamora DO) H/O umbilical hernia repair Onset Date: ~08/04/17 History of adenoidectomy Onset Date: Unknown History of laparoscopic cholecystectomy Onset Date: ~08/04/17 History of tonsillectomy [place] teeth extracted Onset Date: ~2012 Family History: Family History (Last Reviewed 04/23/18 @ 15:50 by Dion Zamora DO) Father Bipolar 1 disorder Grandfather Liver cirrhosis Mother Bipolar 1 disorder Social History: Preferred Language Belarusian Abuse History No History of abuse Psych History Hx of Anxiety,Hx of Depression,Hx of Bipolar Disorder Review Of Systems (GEN) - Review of Systems Generalized/Overall Review: Present: Weakness, Fatigue. Absent: Chills, Fever EENTM: Present: No Symptoms Reported Respiratory: Present: No Symptoms Reported Cardiac: Present: No Symptoms Reported Abdominal: Present: Nausea, Vomiting. Absent: Abdominal Pain, Diarrhea Genitourinary: Present: Other. Absent: Urgency, Frequency, Dysuria - contractions q 4-5 min, 7/10 pain Musculoskeletal: Present: No Symptoms Reported Neurological: Present: No Symptoms Reported Skin: Present: No Symptoms Reported Endocrine: Present: No Symptoms Reported Immunizations: IMMUNIZATION HX Immunizations Up to Date Yes History of Influenza Vaccine No Hx Pneumococcal Vaccination No Allergies/Adverse Reactions: Allergies Allergy/AdvReac Type Severity Reaction Status Date / Time No Known Allergies Allergy Verified 04/23/18 12:52 Home Medications: HOME MEDICATIONS vitamin,calcium,utqfhwpk-pdhm-susqi acid tablet 1 tab PO DAILY [Last Taken 03/23/18 07:00] magnesium 200 mg tablet 1,000 mg PO DAILY 02/18/18 [Last Taken 03/22/18 20:00] insulin NPH isophane U-100 human 100 unit/mL subcutaneous suspension See Label Instructions SUB-Q .COMPLEX #10 ml 04/08/18 [Last Taken 04/21/18 09:00] insulin lispro (U-100) 100 unit/mL subcutaneous solution See Label Instructions SUB-Q .COMPLEX #10 ml 04/08/18 [Last Taken 04/21/18 09:00] Exam - Exam Vital Signs: Vital Signs - Last Taken Temp 36.8 C 04/23/18 14:07 Pulse 81 04/23/18 14:07 Resp 18 04/23/18 14:07 BP 125/82 04/23/18 14:07 Pulse Ox 100 04/23/18 14:07 Constitutional: Present: Alert, Oriented x3, Cooperative ENT Exam: Present: hearing grossly normal Breasts: Present: Exam deferred Respiratory: Present: lungs clear, no respiratory distress Cardiovascular/Chest: Present: normal peripheral pulses, regular rate, rhythm, no edema Abdomen: Present: soft, nontender, no rebound tenderness, other - gravid /Rectal: Present: Other - 4/60/-2, BBOW Extremity: Present: non-tender, no pedal edema, no calf tenderness Skin Exam: Present: normal color, warm/dry, no cyanosis Lymphatic: Present: no adenopathy Neurologic: Present: oriented x 3, other - tired/mildy depressed appearing mood/ affect Appearance: Present: appropriate appearance, appropriate insight Eye contact: Present: cooperative, good eye contact Thoughts: Present: normal thought pattern Assessment/Plan - Assessment/Plan (1) labor in third trimester Assessment: Admit for IV fluids, control of DM and N/V, PTL, GBS prophylaxis. Problem: Acute Qualifiers: Fetus number: single or unspecified fetus (2) Type I diabetes mellitus Problem: Chronic Qualifiers: Diabetes mellitus complication status: with unspecified complications Qualified Code(s): E10.8 - Type 1 diabetes mellitus with unspecified complications (3) History of MRSA infection Problem: Resolved (4) Dehydration Problem: Acute
[2018-04-23] MEDS ORDERED: OXYTOCIN 30 UNITS in NORMAL SALINE 500 ML IV ONE (15:30)
[2018-04-23] MEDS: INSULIN REGULAR, HUMAN 100 UNITS in NORMAL SALINE 100 ML IV PRN ×4 (15:40→16:33)
[2018-04-23] MEDS ORDERED: NALOXONE HCL 1 MG/1 ML SYRG IV PRN (15:42)
[2018-04-23] MEDS ORDERED: ONDANSETRON HCL/PF 2 MG/ML VIAL IV PRN (15:42)
[2018-04-23] MEDS ORDERED: BUPIVACAINE HCL/0.9 % NACL/PF 250 ML EP PRN (15:42)
[2018-04-23] MEDS ORDERED: fentaNYL CITRATE/PF 50 MCG/ML AMPUL IT SCH (15:45)
--- NOTE | 2018-04-23 15:46 | ANES ---
Anesthesia Pre Procedure Eval Vitals/Labs: Last Vital Signs Temp 36.8 C 04/23/18 14:07 Pulse 81 04/23/18 14:07 Resp 18 04/23/18 14:07 BP 125/82 04/23/18 14:07 Pulse Ox 100 04/23/18 14:07 HOME MEDICATIONS vitamin,calcium,cynpkkbx-hnep-embva acid tablet 1 tab PO DAILY [Last Taken 03/23/18 07:00] magnesium 200 mg tablet 1,000 mg PO DAILY 02/18/18 [Last Taken 03/22/18 20:00] insulin NPH isophane U-100 human 100 unit/mL subcutaneous suspension See Label Instructions SUB-Q .COMPLEX #10 ml 04/08/18 [Last Taken 04/21/18 09:00] insulin lispro (U-100) 100 unit/mL subcutaneous solution See Label Instructions SUB-Q .COMPLEX #10 ml 04/08/18 [Last Taken 04/21/18 09:00] Allergies/Adverse Reactions: Allergies Allergy/AdvReac Type Severity Reaction Status Date / Time No Known Allergies Allergy Verified 04/23/18 12:52 - Planned Procedure Planned Procedure: active labor Medication List Reviewed:: Yes Allergies Verified: Yes Medical History (Last Reviewed 04/23/18 @ 15:45 by Cecil Macedo CRNA) Anxiety and depression Onset Date: ~09/2015 Chlamydia Onset Date: ~2014 GERD (gastroesophageal reflux disease) Onset Date: ~05/25/16 Gestational HTN Onset Date: ~2011 Gestational diabetes Hyperlipemia Onset Date: ~09/17/16 Left foot drop No known allergies Overflow incontinence of urine Onset Date: ~09/17/16 Uncontrolled diabetes mellitus Onset Date: ~06/02/17 MRSA (methicillin resistant Staphylococcus aureus) colonization Onset Date: ~ 06/02/17 Obesity Lipoma Onset Date: Unknown Peroneal nerve injury Onset Date: ~09/17/16 Pre-eclampsia Onset Date: ~2011 Premature delivery Onset Date: ~2011 Surgical History (Last Reviewed 04/23/18 @ 15:45 by Cecil Macedo CRNA) H/O umbilical hernia repair Onset Date: ~08/04/17 History of adenoidectomy Onset Date: Unknown History of laparoscopic cholecystectomy Onset Date: ~08/04/17 History of tonsillectomy [place] teeth extracted Onset Date: ~2012 Family History (Last Reviewed 04/23/18 @ 15:45 by Cecil Macedo CRNA) Father Bipolar 1 disorder Grandfather Liver cirrhosis Mother Bipolar 1 disorder - Family Anesthesia History Family History:: no untoward family reactions to anesthesia - Airway/Neck/Teeth Within Normal Limits:: Yes Teeth Condition: Intact Denture Type: None Neck Exam: full range of motion, normal inspection Mallampatti Score: 2 Thyromental (T-M) distance: > 6 cm Mandibulo Hyoid distance: > 3 cm - Respiratory Respiratory: lungs clear, normal breath sounds Smoking Status: Never smoker Sleep Apnea currently treated: No Sleep Apnea by current assessment: No - Cardiovascular Patient History - Cardiac/Respiratory: No pertinent hx Tolerates Activity: Good Heart Sounds: S1 & S2, Regular - Anesthesia Assessment and Plan ASA Class: PS, II, E Anesthesia Type Plan: Epidural Planned difficult intubation/equipment available: No
--- NOTE | 2018-04-23 16:18 | ANES ---
Post Anesthesia Discharge - Transfer of Care Transfer of Care handoff given to nurse: Yes - Anesthesia Post Op Note Anesthesia Post Op Note: Care transferred to OB RN
--- NOTE | 2018-04-23 16:19 | ANES ---
Post Anesthesia Assessment - Vital Signs Vitals: Last Vital Signs Temp 36.8 C 04/23/18 14:07 Pulse 81 04/23/18 14:07 Resp 18 04/23/18 14:07 BP 125/82 04/23/18 14:07 Pulse Ox 100 04/23/18 14:07 Airway Patency: Normal - Mental Status Level Of Consciousness: Awake - Pain Level Pain Score: 0 - N/V Assessment Nausea/Vomiting Presence: None Dehydration:: No
--- NOTE | 2018-04-23 16:21 | ANES ---
Anesthesia Procedure Note Procedure Note: ANESTHESIA PROCEDURE NOTE Date of Procedure: 04/23/2018 Time of procedure:[]. 1600 Performed by: Erich Macedo CRNA Revenue Stamp Cutter: None. Preprocedure diagnosis: Active labor. Post procedure diagnosis: Same. Procedure: Insertion of labor epidural. Indications: The patient is a [22] -year-old [multigravida] female in active labor requesting labor epidural for pain management. Findings: See below. Details of the procedure: The patient was placed in a sitting position. Back was prepped with DuraPrep. Patient was then draped in a sterile fashion. Lidocaine 1% was infiltrated to the skin and subcutaneous tissues at the level of the L3 4 interspace. The epidural space was identified using a 18-gauge Tuohy needle with [id number]-jf-[id number] technique. 20 mcg fentanyl was given intrathecally using a 27 ga. spinal needle. Epidural catheter was inserted without difficulty. Negative test dose was elicited using 5 mL of 1.5% preservative-free lidocaine plus epinephrine 1 200,000. The epidural catheter was then taped and secured in place. EBL: Minimal. Fluids: N/A. Specimen: N/A. Post procedure condition: The patient tolerated the procedure well. No complications were noted. Thank you for this consultation. Latif CRNA
[2018-04-23] MEDS ORDERED: PENICILLIN G POTASSIUM 2.5 MILLIONUNT in DEXTROSE 5 % IN WATER 100 ML IV SCH ×2 (17:34)
[2018-04-23] MEDS ORDERED: BISACODYL 10 MG SUPP.RECT RC PRN (18:36)
[2018-04-23] MEDS ORDERED: SENNOSIDES 8.6 MG TABLET PO PRN (18:36)
[2018-04-23] MEDS ORDERED: HYDROCORTISONE 30 APPL TUBE TP PRN (18:36)
[2018-04-23] MEDS ORDERED: oxyCODONE HCL/ACETAMINOPHEN 1 TAB TABLET PO PRN (18:36)
[2018-04-23] MEDS ORDERED: BENZOCAINE/MENTHOL 81 SPRAY CAN TP PRN (18:36)
[2018-04-23] MEDS ORDERED: GLYCERIN/WITCH HAZEL LEAF 40 APPL BOX TP PRN (18:36)
[2018-04-23] MEDS ORDERED: INSULIN NPH HUMAN ISOPHANE 100 UNITS/ML VIAL SC PRN (18:36)
[2018-04-23] MEDS ORDERED: OXYTOCIN/DEXTROSE 5%-WATER 30 UNITS/500 ML BAG IV ONE (18:36)
--- NOTE | 2018-04-23 20:01 | OR ---
Operative Report - Dictated Report Narrative: Delivery of viable female at 1759 on 04/23/2018 with Apgars 1, 2, 6, 8, 9, weighing 3800 g in TORRI position with a tight nuchal cord 1 and shoulder dystocia 2nd stage of labor: 19 minutes Head/body interval: 4 minutes and 26 seconds Anesthesia: epidural Estimated weight: 3400 g Diabetes : yes type: Pre-existing insulin-dependent Attendants at : OB: Dion Zamora, Ped: Coby Balderas, Nurses : Judith Ortiz, Hannah Garcia, Juany Rodas, Reba Greene, Others: none Position of head at delivery: TORRI Right shoulder anterior Maneuvers used: Evangelist yes, Suprapubic pressure yes, Wood's screw yes, Delivery of posterior shoulder yes, Arm sweep yes, Episiotomy no Description: After delivery of head the nuchal cord was reduced. Mother attempted to push despite having no contraction, with no further descent of baby. I waited approximately 1 minute for a contraction to help in delivering the baby but patient had no further contractions. I proceeded with the above maneuvers in order to deliver the infant. The obstruction seemed to be above the pubic bone since I could put my hand completely around the baby's shoulders. After going through all the above maneuvers 3 times, I was more forceful in delivering the posterior arm. While sweeping the posterior arm I heard a pop. After delivery of the posterior arm (left), I proceeded to pull the out with my fingers hooked under the axilla. After the shoulders cleared the perineum, the infant still would not come despite mother's best efforts at pushing. I wrapped the shoulders in a towel in order to get an adequate sheet metal apprentice to pull the out the remainder of the way. Infant was placed on the mother's abdomen while the nurses began resuscitation efforts. Because of the condition of the baby, the cord was clamped and cut after approximately the first 30 seconds of post delivery evaluation so baby could be further evaluated and treated on the warmer. had poor tone and was not moving extremities at , Injuries noted: Left non-displaced mid humerus fracture noted post-delivery on x-ray Cord gases obtained Venous pH 7.085, base excess -4.2 Arterial pH 7.308, base excess -3.0 Mother's condition: no lacerations EBL: Less than 50 mL Mother informed of dystocia and potential sequelae. Recommendations for future pregnancies: Avoid vaginal delivery of larger than 3800 g.
[2018-04-23] MEDS: INSULIN LISPRO 100 UNITS/ML VIAL SC PRN (20:19)
[2018-04-23] MEDS: IBUPROFEN 800 MG TABLET PO PRN (20:23)
[2018-04-23] MEDS: oxyCODONE HCL/ACETAMINOPHEN 1 TAB TABLET PO PRN (22:45)
[2018-04-23] MEDS: DOCUSATE SODIUM 100 MG CAPSULE PO SCH (22:45)
[2018-04-24] MEDS: IBUPROFEN 800 MG TABLET PO PRN (05:39)
[2018-04-24] MEDS ORDERED: INSULIN NPH HUMAN ISOPHANE 100 UNITS/ML VIAL SC PRN (07:40)
[2018-04-24] MEDS: INSULIN LISPRO 100 UNITS/ML VIAL SC PRN (07:55)
[2018-04-24] MEDS: oxyCODONE HCL/ACETAMINOPHEN 1 TAB TABLET PO PRN ×2 (07:58→11:15)
[2018-04-24 08:25] VITALS: BP 133/92
[2018-04-24] MEDS ORDERED: PRENATAL VITS96/IRON FUM/FOLIC 1 TAB TABLET PO SCH (09:00)
[2018-04-24] MEDS ORDERED: MAGNESIUM OXIDE 400 MG TABLET PO SCH (09:00)
[2018-04-24] MEDS: ESCITALOPRAM OXALATE 10 MG TAB PO SCH ×2 (09:20→10:13)
[2018-04-24] MEDS: DOCUSATE SODIUM 100 MG CAPSULE PO SCH (09:20)
--- NOTE | 2018-04-24 10:03 | PN ---
Subjective - Date and Time Seen Date: 04/24/18 Time: 10:00 Objective - Vitals Vitals: Last Vital Signs Temp 36.5 C 04/24/18 07:30 Pulse 75 04/24/18 07:30 Resp 20 04/24/18 07:30 BP 133/92 H 04/24/18 07:30 Pulse Ox 100 04/24/18 07:30 Patient denies complaints. Blood sugars under good control. Lochia wnl Abdomen - soft, nontender Uterus - firm, at umbilicus - 1 No calf tenderness Impression: day #1 - s/p spontaneous vaginal delivery. Insulin- dependent diabetes well controlled. Anxiety/depression-restarted on medications last night. Anemia-stable. Baby transferred to [facility] for respiratory distress last night. Patient desires early discharge to be with her baby. Plan: Continue routine care. Discussed management of her diabetes and monitoring close for preeclampsia. Follow-up in the office in 2 weeks. Call for any questions or concerns. Cauti Physician Documentation - Urinary Catheter Management Urethral ([place]) Date of Insertion: 04/23/18 Time of Insertion: 16:50 Assessment/Plan - Problems/Diagnosis (1) labor in third trimester Problem: Acute Qualifiers: Fetus number: single or unspecified fetus (2) Type I diabetes mellitus Problem: Chronic Qualifiers: Diabetes mellitus complication status: with unspecified complications Qualified Code(s): E10.8 - Type 1 diabetes mellitus with unspecified complications (3) History of MRSA infection Problem: Resolved (4) Dehydration Problem: Acute
== END 2018-04-24 11:20 | disposition home or self-care (01) | DRG 774 ==
LOC: OBSVTOIN 12:38 → INTOOBSV 12:38 → OB 12:38
PROVIDERS: ADMIT Obstetrics & Gynecology; ATTEND Obstetrics & Gynecology
CPT/HCPCS: 59025; 88307